=== PATIENT | female | born 1995 | race African-American/Black ===

== ENCOUNTER 2025-02-24 18:29 | Emergency (ER) | payer OTHER ==
[~2025-02-24] VITALS: Ht 170.2 cm; Wt 106.0 kg
[2025-02-24 18:41] VITALS: O2SAT 98
[2025-02-24 18:42] VITALS: BP 142/83; PULSE 59; RESP 16; TEMP 37; O2SAT 98
[2025-02-24 22:02] LABS: INFLUENZA TYPE A Presumptive Negative (Pres. Neg.); INFLUENZA TYPE B Presumptive Negative (Pres. Neg.)
[2025-02-24 22:04] LABS: RESPIRATORY SYNCYTIAL VIRUS Not Detected (Not Detectd)
[2025-02-25] MEDS ORDERED: ALBU18HF2 IH (02:03)
== END 2025-02-24 22:14 | disposition left against medical advice (07) ==
LOC: ER 18:29
DX: U07.1 COVID-19 (principal); J20.9 Acute bronchitis, unspecified
CPT/HCPCS: 71045; 81025; 87420; 87426; 87804; 99284

== ENCOUNTER 2025-02-24 23:49 | Emergency (ER) | payer OTHER ==
[~2025-02-24] VITALS: Ht 160 cm; Wt 106.0 kg
[2025-02-25 00:02] VITALS: O2SAT 100
[2025-02-25] MEDS ORDERED: ALBU18HF2 IH (02:03)
[2025-02-25 02:41] VITALS: BP 144/96; PULSE 82; RESP 18; TEMP 36.7; O2SAT 99
== END 2025-02-25 02:43 | disposition home or self-care (01) ==
LOC: ER 23:49
DX: U07.1 COVID-19 (principal)
CPT/HCPCS: 99283